=== PATIENT | male | born 1995 | race African-American/Black ===

== ENCOUNTER 2017-02-12 13:24 | Inpatient (IN) | payer OTHER ==
[~2017-02-12] VITALS: Ht 180.3 cm; Wt 81.4 kg
[2017-02-12 14:18] LABS: MEAN CORPUSCULAR HEMOGLOBIN 30.5 pg (27.0-33.0); MEAN CORPUSCULAR HGB CONC 35.3 g/dl (32.0-36.5); MEAN CORPUSCULAR VOLUME 86.5 fl (80.0-96.0); RED CELL DISTRIBUTION WIDTH 12.1 % (11.5-14.5); WHITE BLOOD COUNT 3.5 K/mm3 (4.0-10.0)
[2017-02-12 14:34] LABS: METHADONE URINE NEGATIVE (NEGATIVE)
[2017-02-12 14:46] LABS: ALBUMIN 4.1 GM/DL (3.2-5.2); ALBUMIN/GLOBULIN RATIO 1.32 (1.00-1.93); ALKALINE PHOSPHATASE 118 U/L (45-117); ALT/SGPT 23 U/L (12-78); ANION GAP 5 MEQ/L (8-16); AST/SGOT 18 U/L (15-37); BILIRUBIN,DIRECT 0.2 MG/DL (0.0-0.2); BILIRUBIN,TOTAL 0.6 MG/DL (0.2-1.0); BLOOD UREA NITROGEN 10 MG/DL (7-18); CALCIUM LEVEL 8.2 MG/DL (8.5-10.1); CARBON DIOXIDE LEVEL 30 MEQ/L (21-32); CHLORIDE LEVEL 104 MEQ/L (98-107); GLUCOSE, FASTING 97 MG/DL (70-105); POTASSIUM SERUM 4.1 MEQ/L (3.5-5.1); SODIUM LEVEL 139 MEQ/L (136-145); TOTAL PROTEIN 7.2 GM/DL (6.4-8.2)
[2017-02-12 20:08] VITALS: BP 123/85
[2017-02-12] MEDS ORDERED: traZODone 50 MG TAB PO PRN (23:00)
[2017-02-12] MEDS ORDERED: MAALOX 30 ML SUSP *UDC PO PRN (23:00)
[2017-02-12] MEDS ORDERED: MOM 30ML SUSPENSION UDC PO PRN (23:00)
[2017-02-13 06:28] VITALS: BP 119/58
--- NOTE | 2017-02-13 09:21 | HPEPDOC ---
Medical History and Physical Date of Admission February 12, 2017 at 16:54 History and Physical PCP: [facility] ATTENDING: Dr. Bladimir Shannon HPI: 21yoM admitted to [facility] for unspecified depressive disorder, being medically examined today. No acute medical complaints today. Denies any fevers, chills, weakness, fatigue, TOBAR, CP, SOB, cough, palpitations, abdominal pain, N/V /D or changes in bowel or bladder habits. PMHx: Anxiety Depression History of SI PSHX: Denies SOCHX: Resides in: [place], from [place] Marital Status: Single Kids: None Employment: Active duty Tobacco use: Denies ETOH: History of one half bottle of liquor daily. He states he quit drinking in October or November. Illicit Drugs: Denies IV Drug Use: Denies Tattoos done unprofessionally: 3 FAMHX: Mother: Alive, unknown Father: Alive, unknown Siblings: Alive, unknown Children: None Unexpected deaths due to medical reasons: None. ROS: As noted in HPI, otherwise 11pt ROS of systems reviewed and unremarkable. PE: GEN: 21 yo M, appears stated age. Well-nourished, well developed. No acute distress. Alert and oriented x 3. Avoids eye contact, flat affect. HEENT: Normocephalic, atraumatic. Pupils are equal, round, and reactive to light. Extraocular movements are intact. No nystagmus appreciated. Sclera are nonicteric. Conjunctiva without injection. Nose midline. Nasal turbinates without bogginess. EACs both patent BL. TMs both visualized and zuleta with good cone of light, no bulging or erythema. No facial asymmetry. Moist mucous membranes. Dentition fair. Pharynx pink and moist, no cobblestoning. Neck supple , trachea midline. No lymphadenopathy or thyromegaly appreciated. CHEST: Regular rate and rhythm, +S1, +S2 LUNGS: Clear to auscultation bilaterally. No wheezes, rales, or rhonchi. Breathing appears symmetric and easy. Patient is speaking in full sentences. No accessory muscle use. ABD: Round, soft, non-tender, non-distended. +Bowel sounds throughout. No rebound or guarding. No costovertebral angle tenderness. EXT: Pulses 2+ bilaterally dorsalis pedis and radial. No lower extremity edema appreciated. SKIN: [place], dry, warm. Capillary refill <2sec. No rashes. NEURO: Alert and oriented x 3. Cranial nerves III-XII are intact. No focal deficits appreciated. EKG: Pending. A&P: 21yoM admitted to [facility] for unspecified depressive disorder, 1. Psych. Plan per Psychiatry. Obtain baseline EKG to assure the safety of psychiatric medications as they can prolong the QT interval. 2. Tattoo done unprofessionally. Patient agrees to HIV and hepatitis screening. 3. Abnormal TSH. Recheck TFTs. 4. Follow up with PCP on discharge. 5. Staff member Marcela CHEN present throughout exam. Vital Signs Vital Signs Date Time Temp Pulse Resp B/P (MAP) Pulse Ox O2 Delivery O2 Flow Rate FiO2 02/13/17 06:28 98.3 63 16 119/58 (78) 02/12/17 19:59 98 Room Air Laboratory Data Labs 24H Laboratory Tests 2 02/12/17 14:05: Anion Gap 5L, Calcium Level 8.2L, Aspartate Amino Transf (AST/SGOT) 18, Alanine Aminotransferase (ALT/SGPT) 23, Alkaline Phosphatase 118H, Total Bilirubin 0.6, Direct Bilirubin 0.2, Total Protein 7.2, Albumin 4.1, Albumin/Globulin Ratio 1.32, Thyroid Stimulating Hormone (TSH) 0.408L, Salicylates Level < 1.7L, Acetaminophen Level < 2.0L, Ethyl Alcohol Level 0.005 02/12/17 14:06: Urine Amphetamines Screen NEGATIVE, Urine Benzodiazepines Screen NEGATIVE, Urine Opiates Screen NEGATIVE, Urine Methadone Screen NEGATIVE, Urine Barbiturates Screen NEGATIVE, Urine Phencyclidine Screen NEGATIVE, Urine Cocaine Metabolite Screen NEGATIVE, Urine Cannabinoids Screen NEGATIVE CBC/BMP Laboratory Tests 02/12/17 14:05 Red Blood Count 5.00, Mean Corpuscular Volume 86.5, Mean Corpuscular Hemoglobin 30.5, Mean Corpuscular Hemoglobin Concent 35.3, Red Cell Distribution Width 12.1 Home Medications No Active Prescriptions or Reported Meds Allergies Coded Allergies: No Known Allergies (Unverified , 02/12/17) Ani Del Cid February 13, 2017 09:21
--- NOTE | 2017-02-13 10:03 | MHHPEPDOC ---
[facility] History & Physical History and Physical DATE OF ADMISSION: February 12, 2017 at 16:54 LEGAL STATUS AT ADMISSION: 9.39 CHIEF COMPLAINT: "People don't like me. 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. He was seen at [facility] for a walk in appt this week and then an intake appt a few days later. At the intake appt he was sent to the ED with homicidal and suicidal ideation. [place] wanted to harm himself and the 2 NCO's that he feels make fun of him in front of others and make him feel ashamed. They tell him he has "big ears, big nose, stinks and has stinky breath". He will awaken at night in fear that the NCO's will come into his room and kill him. He will sit up in the dark in fear. He is suspicious of others and does not trust people very easily. Mr. Garza was deployed to [facility] [place] in 2016 for 4 months. While there he was bullied by an NCO and took an overdose of pain pills (12) he obtained from the clinic. He does not know the name of the medication. This was his first suicide attempt. It was not witnessed and he did not report it. He states he feel asleep and when he awoke he felt he had failed. He feels like a failure much of the time. Pt was bullied throughout school to the point his mother took him out of school. He attended night school to get his HS diploma. This is the patients first psychiatric admission. No previous psychiatric tx until he went to [place] walk [place] clinic [place] this [place]. He did have some counseling in school while being bullied. PSYCHIATRIC REVIEW OF SYSTEMS: Affective: flat Anxiety: mild Trauma: none Psychosis: denies auditory and visual disturbances. Personally: cooperative PAST PSYCHIATRIC HISTORY: Prior Psychiatric Disorder: none Outpatient Treatment: some counseling while a student in middle school due to being the victim of bullying. Suicidal/Self injurious: 1 previous overdose in 2016. Psychotropic Medication History: none ALLERGIES: Latex FAMILY PSYCHIATRIC HISTORY: paternal uncle with depression and alcoholism SOCIAL HISTORY: Early Relations/development: lived with mom and older brother, grew up in [place] then moved to [place] Sibling order: youngest Paternal relationships: parents when he was 9 yo. this made him mad but he does not know the reason for the divorce. Dad remarried. Education: HS diploma some college - was studying criminal justice Occupational: Orders parts for vehicles in the [employer] Legal: denies, no dui's etc Martial: single, last gf was at age 17, she was 18 yo. Economic: pay Supports: mother brother, [place] friends [place] Abuse/trauma: denies h/o abuse or trauma. SUBSTANCE ABUSE HISTORY: used to drink liquor, (vodka) last drank in October 2016-drank to intoxication, denies DUI, no detox or rehab, no abuse of street drugs, denies cannabis, cocaine, methamphetamine and IV drug use. PAST MEDICAL/SURGICAL HISTORY: 1. low TSH 2. no surgeries VITAL SIGNS: Temperature 98.3, pulse 63, respiratory rate 16, blood pressure 119 /58. MENTAL STATUS EXAMINATION: General appearance: Patient is a 21-year old male, who is wearing hospital attire, clean and neat. Speech: slow response to questions. Thought processes: linear Thought content: appropriate Abstract reasoning and computation: Description of associations: . Description of abnormal or psychotic thoughts: denies voices, visions. denies feeeling suicidal today, denies feeling homicidal. Judgment: poor Insight: poor Orientation: oriented to person, place, time and situation. Recent and remote memory: intact Attention span and concentration: adequate Fund of knowledge: below average. Mood: depressed Affect: congruent DIAGNOSES: 1. MDD, severe, recurrent, without psychotic features 2. Learning disabilities, reading 3. low tsh ASSESSMENT: Pt is slow to answer questions. It appears it takes him a little time to process things. He reports a long h/o bullying that began in grade school and continues on the [place] unfortunately. Pt is alert and well oriented. He reports difficulty recently on his job with concentration due to thoughts of being harm by his superiors. He thinks they will kill him in his room at night. He stays awake thinking about it. He often awakes after 2 hours in a panic and has a lot of difficulty returning to sleep. Pt denies use of alcohol and substances. He used to play sports at school in his younger years but has lost interest in sports now. He describes hopelessness, worthlessness as frequent feelings along with thinking he is a failure. All of this is reinforced by the frequent bullying by NCO's. He does [place]. He reports loss of appetite over the past month but states he feels he is gaining wait. He sees the contradiction in this statement. He has been avoiding work once or twice a week because he cannot tolerate going due to the abuse he receives. He feels a lack of energy and his sleep is not sufficient. He reports frequent nightmares of things in the past. PROBLEM LIST: 1. suicidal thoughts 2. homicidal thoughts 3. depression INITIAL TREATMENT PLAN: 1. Patient was admitted on a 2. Complete history was obtained. 3. With patients permission, family will be contacted and database will be expanded. 4. Patients medication regimen will be reviewed and changed accordingly. 5. Patient will be provided with protected environment. 6. Patient will be treated with individual, group, and milieu therapies. 7. Patient will receive supportive psych-education. 8. Discharge planning will commence immediately. 9. Outpatient follow-up treatment will be strongly recommended. 10. The initial treatment plan will focus initially on: * see above ESTIMATED LENGTH OF STAY: 7-10 DAYS. TIME SPENT COUNSELING AND COORDINATING INITIAL CARE: 50 minutes. Laboratory Data 24H Labs Laboratory Tests 2 02/12/17 14:05: Anion Gap 5L, Calcium Level 8.2L, Aspartate Amino Transf (AST/SGOT) 18, Alanine Aminotransferase (ALT/SGPT) 23, Alkaline Phosphatase 118H, Total Bilirubin 0.6, Direct Bilirubin 0.2, Total Protein 7.2, Albumin 4.1, Albumin/Globulin Ratio 1.32, Thyroid Stimulating Hormone (TSH) 0.408L, Salicylates Level < 1.7L, Acetaminophen Level < 2.0L, Ethyl Alcohol Level 0.005 02/12/17 14:06: Urine Amphetamines Screen NEGATIVE, Urine Benzodiazepines Screen NEGATIVE, Urine Opiates Screen NEGATIVE, Urine Methadone Screen NEGATIVE, Urine Barbiturates Screen NEGATIVE, Urine Phencyclidine Screen NEGATIVE, Urine Cocaine Metabolite Screen NEGATIVE, Urine Cannabinoids Screen NEGATIVE CBC/BMP Laboratory Tests 02/12/17 14:05 Red Blood Count 5.00, Mean Corpuscular Volume 86.5, Mean Corpuscular Hemoglobin 30.5, Mean Corpuscular Hemoglobin Concent 35.3, Red Cell Distribution Width 12.1 Medications No Active Prescriptions or Reported Meds Allergies Coded Allergies: No Known Allergies (Unverified , 02/12/17) Tatyana Mehta February 13, 2017 10:03
[2017-02-13] MEDS: ESCITALOPRAM OXALATE 10 MG TAB (LEXAPRO) PO SCH (10:34)
--- NOTE | 2017-02-13 17:24 | ECGEPIP ---
Stationary ECG Study [facility] Test Date: 2017-02-13 Pat Name: ALINA RYAN Department: Room: [place] [address] Gender: M Wellness Health Coach: JOSE G : 1995 Requested By: Ani Del Cid Order Number: [id number] Reading MD: Mikayla Mott Measurements Intervals [place] Rate: 57 P: 33 WI: 149 QRS: 76 QRSD: 101 T: 36 QT: 384 QTc: 375 Interpretive Statements SINUS BRADYCARDIA ST ELEVATION NO PRIOR MARKED EARLY REPOLAR CHGES POSSIBLE VS OTHER CLINICAL ROXANE REQUIRED TALL T-WAVES, SUGGESTS HYPERKALEMIA NO PRIOR CLINICAL CORRELation REQUIRED Electronically Signed On 02-13-2017 17:23:41 EDT by Mikayla Mott
[2017-02-13 18:12] VITALS: BP 110/60
[2017-02-13] MEDS: PRAZOSIN 1 MG CAP PO SCH (21:00)
[2017-02-14 06:04] VITALS: BP 111/55
[2017-02-14 07:31] LABS: T UPTAKE 36 % (33-40)
[2017-02-14] MEDS: ESCITALOPRAM OXALATE 10 MG TAB (LEXAPRO) PO SCH (08:31)
[2017-02-14] MEDS: ACETAMINOPHEN TAB 650MG DOSE (2X325MG) PO PRN ×2 (08:35→21:03)
[2017-02-14 18:13] VITALS: BP 110/62
[2017-02-14] MEDS: PRAZOSIN 1 MG CAP PO SCH (21:03)
--- NOTE | 2017-02-14 22:27 | MHIPNPDOC ---
[facility] Progress Note Progress Note DATE OF SERVICE: 02/14/17 INTERVAL HISTORY: Medication Side effects: reports having some G.I. upset start Lexapro but that is manageable. Behavior/events: has been somewhat reclusive to his room, sleeping large part of the day Group Attendance: has attended groups Psychiatric Symptoms: reports that he has not noticed a change in his depression or anxiety since starting the Lexapro. He still describes having difficulty sleeping. VITAL SIGNS: See below. NEW TEST RESULTS: See below CURRENT MEDICATIONS: See below. MENTAL STATUS EXAMINATION: General: Well dressed with good hygiene Speech: monotone Thought processes: Linear and logical Thought content: reserved Abstract reasoning, and computation: Intact Description of associations: Intact Description of abnormal or psychotic thoughts:Denies any suicidal or homicidal ideation. Denies any auditory or visual hallucinations. Does not appear to be responding to internal stimuli. Does not appear to be endorsing any bizarre or paranoid ideation. Judgment: poor Insight: poor Orientation: Alert and orientated 3 Recent and remote memory: Intact Attention span and concentration: Intact Fund of knowledge: poor Mood: "fine" Affect: flat/blunted DIAGNOSES: 1. Unspecified depressive disorder. ASSESSMENT: stable MANAGEMENT PLAN: Medications: continue Lexapro this time, patient is amenable to continuing it given that his G.I. side effects will likely disappear in a few days. Psychotherapy: encourage group therapy Social: none Misc: none Disposition: The patient will need of further inpatient stay to address medication titration and depression. TIME SPENT: 15 minutes. Vital Signs Vital Signs Date Time Temp Pulse Resp B/P (MAP) Pulse Ox O2 Delivery O2 Flow Rate FiO2 02/14/17 21:03 120/70 02/14/17 18:13 98.7 67 16 02/14/17 06:04 Room Air 02/12/17 19:59 98 Laboratory Data 24H Labs Laboratory Tests 2 02/14/17 06:21: Thyroid Stimulating Hormone (TSH) 0.152L, Free Thyroxine Index 2.5, Thyroxine ( T4) 7.0, Triiodothyronine (T3) Uptake 36 Current Medications Current Medications Acetaminophen (Tylenol Tab) 650 mg Q6HP PRN PO HEADACHE or DISCOMFORT Last administered on 02/14/17t 21:03; Start 02/12/17 at 23:00; Stop 03/14/17 at 22:59 Al Hydrox/Mg Hydrox/Simethicone (Mylanta) 30 ml Q4HP PRN PO HEARTBURN/ INDIGESTION; Start 02/12/17 at 23:00; Stop 03/14/17 at 22:59 Escitalopram Oxalate (Lexapro) 10 mg DAILY PO Last administered on 02/14/17t 08 :31; Start 02/13/17 at 09:00; Stop 03/15/17 at 08:59 Home Med (Med Rec Complete!) ASDIRECTED XX ; Start 02/12/17 at 17:15; Stop at 17:15; Status DC Magnesium Hydroxide (Milk Of Magnesia) 30 ml DAILYPRN PRN PO CONSTIPATION; Start 02/12/17 at 23:00; Stop 03/14/17 at 22:59 Prazosin HCl (Minipress) 1 mg QHS PO Last administered on 02/14/17t 21:03; Start 02/13/17 at 21:00; Stop 03/15/17 at 20:59 Trazodone HCl (Desyrel) 50 mg QHSP PRN PO INSOMNIA; Start 02/12/17 at 23:00; Stop 03/14/17 at 22:59 Allergies Coded Allergies: No Known Allergies (Unverified , 02/12/17) GME ATTESTATION GME ATTESTATION My preceptor for this patient encounter was physically present in the building during the encounter and was fully available. As needed, all aspects of the patient interview, examination, medical decision making process, and medical care plan development were reviewed and approved by the preceptor. Preceptor is aware and concurs with the plan as stated in the body of this note and will attest to such by his/her cosignature. MAHESH BOONE DO February 14, 2017 22:27
[2017-02-15 06:18] VITALS: BP 113/55
[2017-02-15] MEDS: ESCITALOPRAM OXALATE 10 MG TAB (LEXAPRO) PO SCH (08:42)
[2017-02-15 18:00] VITALS: BP 100/59
[2017-02-15] MEDS: PRAZOSIN 1 MG CAP PO SCH (21:37)
--- NOTE | 2017-02-16 06:06 | IPN ---
DATE: 02/15/2017 INTERVAL STORY MEDICATION SIDE EFFECTS: The patient reports that he feels improved using Lexapro. Mostly he has felt it has helped him with nightmares. BEHAVIORAL AND EVENTS: He has remained isolated to his room mostly all the time. GROUP ATTENDANCE: He has been attending groups. PSYCHIATRIC SYMPTOMS: He reports less nightmares and reports that he does not have homicidal or suicidal ideation that he had upon admission. MENTAL STATUS EXAMINATION: Young man dressed in hospital clothes with good eye contact, good hygiene, and good rapport. Speech sparse. Thought process intact. Thought content negative for homicidal ideation, negative for suicidal ideation, negative for psychotic thoughts. Abstract reasoning and computation intact. Descriptions of associations intact. Description of abnormal or psychotic thoughts denies. Delusional thoughts, denies. Auditory or visual hallucinations, does not respond to internal stimuli, and does not have paranoid or bizarre ideation. His judgment and his insight are poor. His orientation, he is alert and oriented times three. His recent and remote memory are intact. Attention span and concentration are intact. Fund of knowledge poor. Mood "okay." Affect flat. DIAGNOSIS: Unspecified depressive disorder. ASSESSMENT: He seems to be stable, but his flat-blunted affect will need to improve as well, and his speech will also have to improve because he is not expressing emotions, neither from his facial expressions and he is not expressing himself through talk, he does not speak and he is very blunted. MANAGEMENT PLAN: Medications: Continue Lexapro and most likely he will need it to be increased because even though when he denies suicidal ideation, homicidal ideation and psychotic thoughts, he is still very blunted. Psychotherapy: He will be encouraged to continue attending groups. DISPOSITION: The patient needs to spend more time in the inpatient mental health unit for further stabilization. TIME SPENT: 15 minutes.
[2017-02-16 06:15] VITALS: BP 107/59
--- NOTE | 2017-02-16 09:30 | MHIPNPDOC ---
[facility] Progress Note Progress Note DATE OF SERVICE: 02/16/17 HISTORY: day 5 of admission, ultrasound on thyroid completed today. VITAL SIGNS: See below.stable NEW TEST RESULTS:EKG shows hyperkalemia and sinus bradycardia. Test Date: 2017-02-13 Pat Name: ALINA RYAN Department: Room: [place] [address] Gender: M Major Account Manager: JOSE G : 1995 Requested By: Ani Del Cid Order Number: [id number] Reading MD: Mikayla Mott Measurements Intervals [place] Rate: 57 P: 33 RI: 149 QRS: 76 QRSD: 101 T: 36 QT: 384 QTc: 375 Interpretive Statements SINUS BRADYCARDIA ST ELEVATION NO PRIOR MARKED EARLY REPOLAR CHGES POSSIBLE VS OTHER CLINICAL ROXANE REQUIRED TALL T-WAVES, SUGGESTS HYPERKALEMIA NO PRIOR CLINICAL CORRELation REQUIRED CURRENT MEDICATIONS: See below. MENTAL STATUS EXAMINATION: Patient is a 21-year old male, who is dressed in hospital garb, clean, good eye contact, soft speech, cooperative. Speech: Is fluent Upper Sorbian, Spontaneous Language skills are good Thought processes including: goal directed, answers questions appropriately, some delay in his replies as he appears to think it over before responding. Thought content: discharge. Abstract reasoning, and computation: good. Description of associations: good. Description of abnormal or psychotic thoughts: denies SI, denies HI, denies auditory or visual disturbances. Judgment: fair Insight: very limited. Orientation: well oriented in all spheres Recent and remote memory: intact Attention span and concentration: adequate Fund of knowledge: impaired Mood: euthymic Affect: broad DIAGNOSES: 1. MDD, severe, recurrent, without psychotic features 2. Learning disabilities, reading 3. low tsh 4. Hyperkalemia ASSESSMENT:Pt states he has been attending to hygiene needs over the weekend. Is eating well. Denies untoward reaction to new medications, no n/v/d or constipation, no rash, no headache. Pt states he attended a few programs over the weekend. He felt awkward at first but more comfortable later. He is asking about discharge and is reluctant to speak with command. Only wants his Capt. here. Will relay to DC Route Manager. Prazosin is beneficial to reducing nightmares. Pt is going to x-ray today for ultrasound of thyroid. EKG suggests sinus bradycardia and hyperkalemia. Will refer to outpatient upon follow up. MANAGEMENT PLAN: continue lexapro and therapeutic programs. TIME SPENT: 30 minutes. Vital Signs Vital Signs Date Time Temp Pulse Resp B/P (MAP) Pulse Ox O2 Delivery O2 Flow Rate FiO2 02/16/17 06:15 98.8 71 16 107/59 (75) Room Air 02/12/17 19:59 98 Current Medications Current Medications Acetaminophen (Tylenol Tab) 650 mg Q6HP PRN PO HEADACHE or DISCOMFORT Last administered on 02/14/17 21:03; Start 02/12/17 at 23:00; Stop 03/14/17 at 22:59 Al Hydrox/Mg Hydrox/Simethicone (Mylanta) 30 ml Q4HP PRN PO HEARTBURN/ INDIGESTION; Start 02/12/17 at 23:00; Stop 03/14/17 at 22:59 Escitalopram Oxalate (Lexapro) 10 mg DAILY PO Last administered on 02/15/17 08 :42; Start 02/13/17 at 09:00; Stop 03/15/17 at 08:59 Home Med (Med Rec Complete!) ASDIRECTED XX ; Start 02/12/17 at 17:15; Stop at 17:15; Status DC Magnesium Hydroxide (Milk Of Magnesia) 30 ml DAILYPRN PRN PO CONSTIPATION; Start 02/12/17 at 23:00; Stop 03/14/17 at 22:59 Prazosin HCl (Minipress) 1 mg QHS PO Last administered on 02/15/17 21:37; Start 02/13/17 at 21:00; Stop 03/15/17 at 20:59 Trazodone HCl (Desyrel) 50 mg QHSP PRN PO INSOMNIA Last administered on 21:38; Start 02/12/17 at 23:00; Stop 03/14/17 at 22:59 Allergies Coded Allergies: No Known Allergies (Unverified , 02/12/17) Tatyana Mehta February 16, 2017 09:30
[2017-02-16] MEDS: ESCITALOPRAM OXALATE 10 MG TAB (LEXAPRO) PO SCH (09:47)
--- NOTE | 2017-02-16 10:21 | REP ---
Clinical: Abnormal thyroid function tests. Technique: Real time zuleta scale and color evaluation using linear high frequency transducer. Findings: The thyroid gland is normal in contour, size, and echogenicity. Vascularity is normal. No nodule or cystic abnormalities are appreciated. Right lobe measures 4.3 x 1.6 x 1.3 cm. Left lobe measures 3.8 x 1.6 x 1.3 cm. Isthmus measures 2.3 mm in width. Impression: Normal thyroid ultrasound. Signed by Presley Perry MD 02/16/2017 10:13 A
--- NOTE | 2017-02-16 13:52 | ECGEPIP ---
Stationary ECG Study [facility] Test Date: 2017-02-16 Pat Name: ALINA RYAN Department: Room: [place] [address] Gender: M Clinical Trial Assistant: KAYLEIGH : 1995 Requested By: Ani Del Cid Order Number: [id number] Reading MD: Shane Bynum Measurements Intervals [place] Rate: 60 P: 29 MT: 131 QRS: 77 QRSD: 106 T: 12 QT: 363 QTc: 363 Interpretive Statements SINUS RHYTHM/Sinus arrhythmia ST ELEVATION, PROBABLY EARLY REPOLARIZATION Within normal limits for age Electronically Signed On 02-16-2017 13:52:01 EDT by Shane Bynum
[2017-02-16 18:00] VITALS: BP 116/58
[2017-02-16 20:45] VITALS: BP 118/67
[2017-02-16] MEDS: PRAZOSIN 1 MG CAP PO SCH (20:45)
[2017-02-17 06:48] VITALS: BP 113/55
[2017-02-17] MEDS: ESCITALOPRAM OXALATE 10 MG TAB (LEXAPRO) PO SCH (08:47)
[2017-02-17] MEDS ORDERED: MINI1CAP PO (10:36)
[2017-02-17] MEDS ORDERED: TRAZO50TA PO (10:36)
[2017-02-17] MEDS ORDERED: ESCI10TA2 PO (10:36)
--- NOTE | 2017-02-17 10:57 | MHDSPDOC ---
[facility] Discharge Summary Discharge Summary DATE OF ADMISSION: February 12, 2017 at 16:54 DATE OF DISCHARGE: February 17, 2017 DISCHARGE DIAGNOSES: 1. 2. REASON FOR ADMISSION: pt was homicidal and suicidal when evaluated in the Emergency dept and decision to admit to unit was made. He has a long history of bullying in school that was significant and actually resulted in him withdrawing from school and finishing at night school. Pt reports degrading and humiliating remarks by his NCO's that add to his anger and frustration from his previous bullying experiences. CONSULTANTS INVOLVED:Medicine-abnormal TFT, Abnormal EKG-hypokalemia, Psychiatry TREATMENT AND PROGRESS ON THE UNIT : Pt was very fearful upon arriving on the unit. He responded well to reassurance and support. He would attend groups but did not engage 1:1 with any peers or staff. He admits he does not trust others. He reports being bullied for many years and this had a deep effect on him. He lacks self-confidence and often fears for his safety. He reports remaining awake in his [employer] at night fearing the NCO's would come to his room and kill him. Pt does not report psychotic symptoms but there is a suspicion that his IQ may be below average. Pt demonstrates slow response to questions and appears not to understand what is said to him. Pt was not determined to have a thought processing disorder. He is not delusional. His thoughts are not disorganized. He does not report psychotic symptoms. He reports mild symptoms of anxiety and depression but mostly admits to anger when being mistreated. HOSPITAL COURSE: Pt was started on Lexapro for anxiety and depression. He was started on prazosin for c/o frequent nightmares of long standing. He was prescribed trazodone prn for aid in sleep. John attended groups and was observed on the unit more and more as the days progressed. He stated he felt safe in this environment. He requested discharge yesterday and a [facility] meeting was arranged for today. Pj asked that typewriter tester explain his concerns and fears to the Captain. Pj did not feel he could advocate for himself. He was able to tell the Captain that he feared for his own safety with regards to returning to work. The Captain assured him he would be safe and that matters with the NCO's is being looked into. 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 Pj has been taking medications with good effect and no side effects. DISCHARGE ASSESSMENT: Pj denies suicidal and homicidal thoughts and has denied them for several days. He states he is ready to return to work and admits to having anxiety related to this. His Lexapro should be increased. He should have IQ testing done to see what range he is in so as to determine what other interventions may contribute to a successful career for him. He can continue the prazosin which he reports has helped his nightmares. He has trazodone as needed for insomnia. Pt may benefit from additional anxiety aids as determined by his outpatient treatment team. Anger management skills would also be beneficial to Pj. MENTAL STATUS EXAMINATION ON DISCHARGE: Patient is a 21-year old male, who is dressed in his uniform, nicely groomed, pleasant and soft spoken. Speech is hesitant, monosyllables. Language skills are intact Thought processes including: linear Thought content: appropriate Abstract reasoning, and computation: fair Description of associations: good. Description of abnormal or psychotic thoughts:denies. Judgment: good. Insight: fair Orientation to person, place, time and situation is good. Recent and remote memory: good Attention span and concentration: good. Fund of knowledge: average Mood: anxious Affect: congruent. MEDICATIONS ON DISCHARGE: - Lexapro for anxiety and depression - Prazosin for nightmares. - Trazodone for sleep. PLAN/FOLLOWUP ARRANGEMENTS: report to [facility], obtain medications, keep all appointemnt, take all meds as prescribed. Follow up with PCP for endocrine and EKG concerns. The amount of time spent in the coordination of care for this patient was approximately 60 minutes. Vital Signs/I&Os Vital Signs Date Time Temp Pulse Resp B/P (MAP) Pulse Ox O2 Delivery O2 Flow Rate FiO2 02/17/17 06:48 98.0 72 16 113/55 (74) 02/16/17 06:15 Room Air 02/12/17 19:59 98 Medications Scheduled Escitalopram Oxalate (Escitalopram Oxalate) 10 Mg Tab, 10 MG PO DAILY for ANXIETY for 7 Days, #7 Prazosin HCl (Minipress) 1 Mg Cap, 1 MG PO QHS for ANXIETY for 7 Days, #7 Scheduled PRN Trazodone HCl (Trazodone HCl) 50 Mg Tab, 50 MG PO QHSP PRN for INSOMNIA for 7 Days, #7 Allergies Coded Allergies: No Known Allergies (Unverified , 02/12/17) Tatyana Mehta February 17, 2017 10:57
== END 2017-02-17 11:00 | disposition home or self-care (01) | DRG 885 ==
LOC: M ED 16:06 → M ED INP 16:54 → M PSY 20:06
PROVIDERS: ADMIT Psychiatry & Neurology Psychiatry; ATTEND Psychiatry & Neurology Psychiatry
DX: F33.3 Major depressive disorder, recurrent, severe with psychotic symptoms (principal); R45.851 Suicidal ideations; E87.5 Hyperkalemia; F81.9 Developmental disorder of scholastic skills, unspecified; Z91.040 Latex allergy status; R45.850 Homicidal ideations